=== PATIENT | female | born 1955 | race Caucasian/White ===

== ENCOUNTER → 2017-01-29 | Day surgery (SDC) | payer OTHER ==
--- NOTE | 2017-01-30 16:45 | PATH ---
Cytology Non-Gynecological Report Patient Name: JESÚS BARRAGAN [facility]. Rec. #: [id number] /Age/Gender: 1955 (Age: 61) / F Account: [id number] Location: RADIOLOGY Taken: 01/29/2017 Received: 01/30/2017 Reported: 01/30/2017 Physicians: Diogo Palomo M.D. Specimen(s) Received RIGHT THYROID FNA Clinical History Right thyroid nodule, 3.11 x 2.7 x 1.93 cm Final Diagnosis THYROID, RIGHT, FINE NEEDLE ASPIRATION: UNSATISFACTORY FOR EVALUATION. BETHESDA CLASS I: NON-DIAGNOSTIC. RARE FOLLICULAR CELLS AND SCANT COLLOID PRESENT. Electronically Signed Nia Mcdonnell M.D. Gross Description Received are eight direct smears, four of which are air-dried and Diff-Quik stained, and four of which are alcohol fixed and Pap stained. Also received is 20 ml of bloody formalin from which one cellblock is prepared.
== END | disposition home or self-care (01) ==
LOC: JRADIR 08:34
PROVIDERS: ATTEND Internal Medicine Endocrinology, Diabetes & Metabolism
PROC: 0G9H3ZX Drainage of Right Thyroid Gland Lobe, Percutaneous Approach, Diagnostic (ICD-10-PCS; principal; 2017-01-29)
PROC: BG44ZZZ Ultrasonography of Thyroid Gland (ICD-10-PCS; 2017-01-29)
DX: E04.1 Nontoxic single thyroid nodule (principal)
CPT/HCPCS: 76942; 88173; 88305-TC

== ENCOUNTER 2018-02-26 08:38 | Day surgery (SDC) | payer OTHER ==
[2018-02-25 14:50] VITALS: BMI 28.4
[2018-02-26 10:30] VITALS: TEMP 97.5
[2018-02-26 12:26] VITALS: BP 136/60; PULSE 95
--- NOTE | 2018-02-27 17:58 | PATH ---
Surgical Pathology Report Patient Name: JESÚS BARRAGAN [facility]. Rec. #: [id number] /Age/Gender: 1955 (Age: 62) / F Account: [id number] Location: [facility] SURGICAL Taken: 02/26/2018 Received: 02/26/2018 Reported: 02/27/2018 Physicians: Nuno Espinal M.D. Specimen(s) Received A: BX JEJUNUM B: BX ANASTOMOSIS RING C: BX GASTRIC POUCH Clinical History Status post bariatric surgery, screening malignancy Postoperative diagnosis: Status post bariatric surgery, hiatal hernia, normal anastomosis, diverticulosis Final Diagnosis A. JEJUNUM, BIOPSY: SMALL BOWEL MUCOSA WITHOUT SIGNIFICANT PATHOLOGIC FINDINGS. B. ANASTOMOSIS, BIOPSY: GASTRIC BODY MUCOSA WITH MINIMAL CHRONIC INFLAMMATION. IMMUNOHISTOCHEMICAL STAIN FOR H. PYLORI IS NEGATIVE. C. GASTRIC POUCH, BIOPSY: GASTRIC BODY MUCOSA WITH MILD CHRONIC GASTRITIS. IMMUNOHISTOCHEMICAL STAIN FOR H. PYLORI IS NEGATIVE. Electronically Signed Nia Mcdonnell M.D. Gross Description A. Received in formalin, labeled "biopsy jejunum" are 5 yanes, irregular portions of soft tissue ranging from 0.1-0.4 cm. in greatest dimension. The specimens are submitted in toto in one cassette. B. Received in formalin, labeled "biopsy anastomosis" are 2 yanes, irregular portions of soft tissue measuring 0.3 and 0.4 cm. in greatest dimension. The specimens are submitted in toto in one cassette. C. Received in formalin, labeled "biopsy gastric pouch" are 2 yanes, irregular portions of soft tissue measuring 0.2 and 0.3 cm. in greatest dimension. The specimens are submitted in toto in one cassette. 02/26/2018 saudi02/26/2018
== END 2018-02-26 11:50 | disposition home or self-care (01) ==
LOC: JASU-SURG 08:38
PROVIDERS: ATTEND Internal Medicine Gastroenterology
PROC: 0DB68ZX Excision of Stomach, Via Natural or Artificial Opening Endoscopic, Diagnostic (ICD-10-PCS; 2018-02-26)
PROC: 0DJD8ZZ Inspection of Lower Intestinal Tract, Via Natural or Artificial Opening Endoscopic (ICD-10-PCS; principal; 2018-02-26 09:45)
DX: Z12.11 Encounter for screening for malignant neoplasm of colon (principal); D50.9 Iron deficiency anemia, unspecified; Z98.84 Bariatric surgery status; K57.30 Diverticulosis of large intestine without perforation or abscess without bleeding; D17.5 Benign lipomatous neoplasm of intra-abdominal organs; K64.8 Other hemorrhoids; K44.9 Diaphragmatic hernia without obstruction or gangrene; E11.9 Type 2 diabetes mellitus without complications; Z79.84 Long term (current) use of oral hypoglycemic drugs
CPT/HCPCS: 43239; G0121; 88305-TC; 88342-TC

== ENCOUNTER 2018-04-14 16:20 | Emergency (ER) | payer OTHER ==
--- NOTE | 2018-04-14 16:45 | PDOC ---
Rapid Medical Evaluation Chief Complaint: Pain, Acute Medical Evaluation: Allergies Allergy/AdvReac Type Severity Reaction Status Date / Time No Known Allergies Allergy Verified 10/29/14 21:50 04/14/18 16:41 I have performed a brief in-person evaluation of this patient. The patient presents with a chief complaint of:right hand pain - 17 days ago Pertinent physical exam findings: deformity to right 5th digit I have ordered the following: finger Xray The patient will proceed to the ED for further evaluation. 04/14/18 16:44 Discharge Disposition - Referrals Referrals: Dulce Maria Patel MD [Primary Care Provider] - - Patient Instructions - Post Discharge Activity
[2018-04-14 16:46] VITALS: BP 108/51; PULSE 74; TEMP 97.3; BMI 62.7
[2018-04-14] MEDS ORDERED: IBUPROFEN 600 MG TABLET (FP) PO ONE ×2 (18:29→18:33)
--- NOTE | 2018-04-14 18:59 | PDOC ---
History of Present Illness - General Chief Complaint: Pain, Acute Stated Complaint: FALL Time Seen by Provider: 04/14/18 17:05 History Source: Patient Exam Limitations: No Limitations - History of Present Illness Initial Comments: 04/14/18 18:54 62 year old female with history of DM, HTN, CHol, and sugical history of gastric bypass presents with injury to right hand. Patient reports s/p fall using right hand to break her fall. States area black and blue and 4th and 5th finger swollen and painful after fall. Since there bruising has resolved but 4th and 5th finger continues with swelling and pain with movement. States 5th digit painful with movement and has a slight bruising. Occurred: reports: other (3 weeks ago ) Severity: reports: mild Pain Location: reports: upper extremity Method of Injury: Yes: fall Modifying Factors: improves with: immobilization Loss of Consciousness: no loss of consciousness Associated Symptoms (Fall): denies symptoms Past History - Travel Traveled outside of the country in the last 30 days: No - Past Medical History Allergies/Adverse Reactions: Allergies Allergy/AdvReac Type Severity Reaction Status Date / Time No Known Allergies Allergy Verified 04/14/18 16:46 Home Medications: Ambulatory Orders Albuterol Sulfate Inhaler - [Ventolin HFA Inhaler -] 1 - 2 inh PO QID PRN Aspirin [ASA -] 81 mg PO DAILY 08/31/14 Lisinopril [Prinivil] 5 mg PO DAILY 08/31/14 Loratadine 10 mg PO DAILY 08/31/14 metFORMIN HCL [Glucophage] 1,000 mg PO BID 08/31/14 Ferrous Sulfate 325 mg PO DAILY 02/26/18 Meloxicam 15 mg PO DAILY 02/26/18 Asthma: Yes Cancer: No Cardiac Disorders: No CVA: No COPD: No CHF: No Dementia: No Diabetes: Yes GI Disorders: Yes (DIVERTICULOSIS) Disorders: No HTN: Yes Hypercholesterolemia: No Liver Disease: No Seizures: No Thyroid Disease: No - Surgical History Abdominal Surgery: Yes (gastric bypass 2009) Orthopedic Surgery: Yes (HAND SX, SHOULDER SX) - Suicide/Smoking/Psychosocial Hx Smoking History: Never smoked Have you smoked in the past 12 months: No Information on smoking cessation initiated: No Hx Alcohol Use: No Drug/Substance Use Hx: No Substance Use Type: None Hx Substance Use Treatment: No Trauma Specific PMHX - Complaint Specific PMHX Arthritis: Yes Review of Systems - Review of Systems Able to Perform ROS?: Yes Is the patient limited Colombian proficient: No Constitutional: No: Chills, Fever HEENTM: No: Double Vision, Nose Pain, Nose Congestion, Tinnitus, Throat Swelling , Difficulty Swallowing Respiratory: No: Cough, Shortness of Breath, Wheezing Cardiac (ROS): No: Chest Pain, Lightheadedness Musculoskeletal: Yes: Joint Pain. No: Muscle Pain Integumentary: Yes: Bruising Neurological: No: Numbness, Paresthesia, Tingling *Physical Exam - Vital Signs Last Vital Signs Temp Pulse Resp BP Pulse Ox 97.3 F L 74 17 108/51 L 100 04/14/18 16:42 04/14/18 16:42 04/14/18 16:42 04/14/18 16:42 04/14/18 16:42 - Physical Exam General Appearance: Yes: Nourished, Appropriately Dressed. No: Apparent Distress HEENT: positive: EOMI, Pharynx Normal Neck: positive: Supple. negative: Lymphadenopathy (R), Lymphadenopathy (L) Respiratory/Chest: positive: Lungs Clear, Normal Breath Sounds Cardiovascular: positive: Regular Rate, S1, S2 Extremity: positive: Normal Capillary Refill, Swelling, Inflammation, Other ( right 4th and 5th digit with inflammation. 5th finger with bruising on finger, unable to flex and extend without pain, decrease strength in 5th digit ) Moderate Sedation - Procedure Monitoring Vital Signs: Procedure Monitoring Vital Signs Temperature 97.3 F L 04/14/18 16:42 Pulse Rate 74 04/14/18 16:42 Respiratory Rate 17 04/14/18 16:42 Blood Pressure 108/51 L 04/14/18 16:42 O2 Sat by Pulse Oximetry (%) 100 04/14/18 16:42 ED Treatment Course - Medications Given in the ED: ED Medications Discontinued Medications Generic Name Dose Route Start Last Admin Trade Name Freq PRN Reason Stop Dose Admin Ibuprofen 600 mg 04/14/18 18:29 04/14/18 18:35 Motrin - PO 04/14/18 18:30 600 mg ONCE ONE Administration Medical Decision Making - Medical Decision Making 04/14/18 19:00 62 year old female with history of DM, HTN, CHol, and sugical history of gastric bypass presents with injury to right hand Plan xray of right hand james taping, + avulsion fracture of 5th digit ( due to age of injury james taping applied) referred to orthopedics ( has scheduled appointment 04/16/18. for knee,) instruct patient to discuss result of finger fracture with ortho *DC/Admit/Observation/Transfer Diagnosis at time of Disposition: Finger injury Qualifiers: Encounter type: initial encounter Laterality: right Qualified Code(s): S69.91XA - Unspecified injury of right wrist, hand and finger(s), initial encounter - Discharge Dispostion Disposition: HOME Condition at time of disposition: Good Decision to Admit order: No - Referrals Referrals: Dulce Maria Patel MD [Primary Care Provider] - Valerio López MD [Staff Physician] - 24 hours - Patient Instructions Printed Discharge Instructions: DI for Finger Fracture Additional Instructions: Please apply james taping as directed in fast track today Follow up with orthopedics as previously scheduled Returned for worsening pain May take ibuprofen or acetaminophen for pain - Post Discharge Activity Forms/Work/School Notes: Back to Work
== END 2018-04-14 19:23 | disposition home or self-care (01) ==
LOC: JERFT 16:20
DX: S62.606A Fracture of unspecified phalanx of right little finger, initial encounter for closed fracture (principal); W18.39XA Other fall on same level, initial encounter; Y93.89 Activity, other specified; Y92.89 Other specified places as the place of occurrence of the external cause; Y99.8 Other external cause status; I10 Essential (primary) hypertension; E11.9 Type 2 diabetes mellitus without complications; Z79.84 Long term (current) use of oral hypoglycemic drugs; Z87.19 Personal history of other diseases of the digestive system; Z98.84 Bariatric surgery status
CPT/HCPCS: 73140-TC-RT-FY; 99281-25

== ENCOUNTER 2021-07-31 16:12 | Emergency (ER) | payer OTHER ==
[2021-07-31 16:36] VITALS: TEMP 98.1; BMI 23.7
[2021-07-31 17:20] VITALS: BP 117/56; PULSE 70
[2021-07-31 17:54] LABS: BASO % 0.6 % (0-2.0); EOS % 1.5 % (0-4.5); HEMATOCRIT 39.9 % (32.4-45.2); HEMOGLOBIN 13.6 GM/dL (10.7-15.3); LYMPH % 36.3 % (8-40); MCHC 34.1 g/dl (32.0-36.0); MEAN CELL VOLUME 90.9 fl (80-96); MEAN PLT VOLUME 7.6 fl (7.5-11.1); MONO % 8.1 % (3.8-10.2); NEUT % 53.5 % (42.8-82.8); PLATELET COUNT 329 10^3/uL (134-434); RBC 4.39 M/mm3 (3.60-5.2); RDW 13.4 % (11.6-15.6); WHITE BLOOD COUNT 5.4 K/mm3 (4.0-10.0)
[2021-07-31 18:15] LABS: ALBUMIN 4.2 g/dl (3.4-5.0); BLOOD UREA NITROGEN 15.4 mg/dL (7-18); CALCIUM 10.2 mg/dL (8.5-10.1)
[2021-07-31 18:18] LABS: CREATININE 0.9 mg/dL (0.55-1.3)
[2021-07-31 18:20] LABS: BILIRUBIN,TOTAL 0.5 mg/dL (0.2-1); TOT PROT 7.3 g/dl (6.4-8.2)
[2021-07-31] MEDS ORDERED: ACETAMINOPHEN 1000 MG/100 ML BAG IVPB ONE (19:57)
[2021-07-31] MEDS ORDERED: ACETAMINOPHEN INJECTION 100 ML IVPB ONE (20:03)
== END 2021-07-31 21:26 | disposition home or self-care (01) ==
LOC: JER 16:12
PROC: 3E0333Z Introduction of Anti-inflammatory into Peripheral Vein, Percutaneous Approach (ICD-10-PCS; principal; 2021-07-31)
DX: S00.12XA Contusion of left eyelid and periocular area, initial encounter (principal); R07.9 Chest pain, unspecified; W01.0XXA Fall on same level from slipping, tripping and stumbling without subsequent striking against object, initial encounter
CPT/HCPCS: 36415; 70450-TC; 71046-TC-FY; 72125-TC; 80053; 82962; 84484; 85025; 93005; 93010; 96374; 99285-25

== ENCOUNTER 2022-07-25 12:39 | Emergency (ER) | payer OTHER ==
[2022-07-25 12:52] VITALS: BP 122/60; PULSE 64; RESP 18; TEMP 97.8; BMI 25.0
[2022-07-25] MEDS ORDERED: ACETAMINOPHEN 325 MG TABLET (FP) PO ONE (13:23)
[2022-07-25] MEDS ORDERED: ACETAMINOPHEN 325 MG TABLET (FP) ONE (13:24)
== END 2022-07-25 14:02 | disposition home or self-care (01) ==
LOC: JERFT 12:39
DX: M79.641 Pain in right hand (principal); M79.89 Other specified soft tissue disorders
CPT/HCPCS: 73110-TC-RT-FY; 73130-TC-RT-FY; 99283-25

== ENCOUNTER 2023-06-09 11:49 | Emergency (ER) | payer OTHER ==
[2023-06-09 11:58] VITALS: BP 105/42; PULSE 84; RESP 18; TEMP 98.4; BMI 24.4
[2023-06-09] MEDS ORDERED: KETOROLAC TROMETHAMINE 30 MG/1 ML VIAL ONE (12:38)
[2023-06-09] MEDS ORDERED: LIDOCAINE 4% PATCH TP ONE (12:38)
[2023-06-09] MEDS ORDERED: ACETAMINOPHEN 500 MG TABLET (FP) ONE (12:39)
[2023-06-09] MEDS: KETOROLAC TROMETHAMINE 30 MG/1 ML VIAL IM ONE (12:49)
[2023-06-09] MEDS: LIDOCAINE 4% PATCH TP ONE (12:49)
[2023-06-09] MEDS: ACETAMINOPHEN 500 MG TABLET (FP) PO ONE (12:49)
[2023-06-09] MEDS ORDERED: LIDOCAINE PATCH REMOVAL MC SCH (22:00)
== END 2023-06-09 14:03 | disposition home or self-care (01) ==
LOC: JER 11:49 → JERFT 11:49
PROC: 3E0233Z Introduction of Anti-inflammatory into Muscle, Percutaneous Approach (ICD-10-PCS; principal; 2023-06-09)
DX: M54.41 Lumbago with sciatica, right side (principal)
CPT/HCPCS: 96372; 99284-25

== ENCOUNTER 2023-11-28 02:46 | Emergency (ER) | payer OTHER ==
[2023-11-28 02:57] VITALS: BMI 24.7
[2023-11-28 04:11] LABS: BASO % 0.3 % (0-2.0); EOS % 0.2 % (0-4.5); HEMATOCRIT 35.7 % (32.4-45.2); HEMOGLOBIN 12.1 GM/dL (10.7-15.3); LYMPH % 8.6 % (8-40); MCH 29.5 pg (25.7-33.7); MEAN CELL VOLUME 86.8 fl (80-96); MEAN PLT VOLUME 7.7 fl (7.5-11.1); MONO % 4.6 % (3.8-10.2); NEUT % 86.3 % (42.8-82.8); PLATELET COUNT 272 10^3/uL (134-434); RBC 4.11 M/mm3 (3.60-5.2); RDW 14.1 % (11.6-15.6); WHITE BLOOD COUNT 6.1 K/mm3 (4.0-10.0)
[2023-11-28] MEDS ORDERED: ACETAMINOPHEN INJECTION 100 ML ONE (04:12)
[2023-11-28] MEDS ORDERED: METOCLOPRAMIDE HCL INJECTION 10 MG/2 ML VIAL ONE (04:12)
[2023-11-28 04:22] LABS: POTASSIUM 4.2 mmol/L (3.5-5.1)
[2023-11-28 04:24] LABS: ALBUMIN 3.5 g/dl (3.4-5.0); CALCIUM 9.5 mg/dL (8.5-10.1)
[2023-11-28 04:25] LABS: BLOOD UREA NITROGEN 14.8 mg/dL (7-18)
[2023-11-28 04:28] LABS: CREATININE 0.9 mg/dL (0.55-1.3)
[2023-11-28 04:29] LABS: BILIRUBIN,TOTAL 0.4 mg/dL (0.2-1); TOT PROT 6.8 g/dl (6.4-8.2)
[2023-11-28] MEDS: SODIUM CHLORIDE 0.9% 500 ML INFUS.BAG IV ONE (04:29)
[2023-11-28] MEDS: ACETAMINOPHEN 1000 MG/100 ML BAG IVPB ONE (04:30)
[2023-11-28] MEDS: METOCLOPRAMIDE HCL INJECTION 10 MG/2 ML VIAL IVPB ONE (04:31)
[2023-11-28 04:51] LABS: LACTIC ACID 2.8 mmol/L (0.4-2.0)
[2023-11-28] MEDS ORDERED: MECLIZINE HCL 12.5 MG TABLET ONE (05:30)
[2023-11-28] MEDS: MECLIZINE HCL 12.5 MG TABLET PO ONE (05:36)
[2023-11-28 06:36] VITALS: BP 111/49; PULSE 66; RESP 14; TEMP 97.5
== END 2023-11-28 07:14 | disposition home or self-care (01) ==
LOC: JER 02:46
PROC: 3E033NZ Introduction of Analgesics, Hypnotics, Sedatives into Peripheral Vein, Percutaneous Approach (ICD-10-PCS; principal; 2023-11-28)
PROC: 3E033GC Introduction of Other Therapeutic Substance into Peripheral Vein, Percutaneous Approach (ICD-10-PCS; 2023-11-28)
DX: R42 Dizziness and giddiness (principal); R51.9 Headache, unspecified; R11.2 Nausea with vomiting, unspecified; R19.7 Diarrhea, unspecified
CPT/HCPCS: 36415; 70450-TC; 80053; 83605; 83690; 84484; 85025; 93005; 93010; 96374; 96375; 99285-25; J0131

== ENCOUNTER 2024-01-14 10:07 | Emergency (ER) | payer OTHER ==
[2024-01-14] MEDS ORDERED: LIDOCAINE 4% PATCH TP ONE (11:12)
[2024-01-14] MEDS ORDERED: KETOROLAC TROMETHAMINE 15 MG/ML VIAL ONE (11:12)
[2024-01-14] MEDS ORDERED: CYCLOBENZAPRINE HCL 10 MG TABLET (FP) ONE (11:12)
[2024-01-14] MEDS: LIDOCAINE 5% TOPICAL PATCH TP ONE (11:19)
[2024-01-14] MEDS: CYCLOBENZAPRINE HCL 10 MG TABLET (FP) PO ONE (11:19)
[2024-01-14] MEDS: KETOROLAC TROMETHAMINE 15 MG/ML VIAL IM ONE (11:20)
[2024-01-14 12:23] VITALS: BP 130/55; PULSE 70; RESP 16; TEMP 98.2; BMI 24.4
[2024-01-14] MEDS ORDERED: LIDOCAINE PATCH REMOVAL MC SCH (22:00)
== END 2024-01-14 12:22 | disposition home or self-care (01) ==
LOC: JERFT 10:07
PROC: 3E0133Z Introduction of Anti-inflammatory into Subcutaneous Tissue, Percutaneous Approach (ICD-10-PCS; principal; 2024-01-14)
DX: S39.012A Strain of muscle, fascia and tendon of lower back, initial encounter (principal); X50.1XXA Overexertion from prolonged static or awkward postures, initial encounter
CPT/HCPCS: 99284-25

== ENCOUNTER 2024-07-01 07:13 | Day surgery (SDC) | payer OTHER ==
[2024-06-29 13:22] VITALS: BMI 24.8
[2024-07-01] MEDS ORDERED: MIDAZOLAM HCL 2 MG/2 ML SINGLE DOSE VIAL ONE (09:44)
[2024-07-01 10:44] VITALS: TEMP 98
[2024-07-01 12:46] VITALS: BP 129/51; PULSE 66; RESP 18
== END 2024-07-01 11:35 | disposition home or self-care (01) ==
LOC: JASU-ENDO 07:13
PROVIDERS: ATTEND Internal Medicine Gastroenterology
PROC: 0DBA8ZX Excision of Jejunum, Via Natural or Artificial Opening Endoscopic, Diagnostic (ICD-10-PCS; 2024-07-01)
PROC: 0DB68ZX Excision of Stomach, Via Natural or Artificial Opening Endoscopic, Diagnostic (ICD-10-PCS; 2024-07-01)
PROC: 0DJD8ZZ Inspection of Lower Intestinal Tract, Via Natural or Artificial Opening Endoscopic (ICD-10-PCS; principal; 2024-07-01 09:30)
DX: Z12.11 Encounter for screening for malignant neoplasm of colon (principal); K64.8 Other hemorrhoids; K57.30 Diverticulosis of large intestine without perforation or abscess without bleeding; K63.89 Other specified diseases of intestine; K21.00 Gastro-esophageal reflux disease with esophagitis, without bleeding; Z98.84 Bariatric surgery status; K44.9 Diaphragmatic hernia without obstruction or gangrene
CPT/HCPCS: 43239; G0121; 82962; 88305-TC; 88342-TC